=== PATIENT | female | born 1980 | race Two or more races ===

== ENCOUNTER → 2024-09-13 | Outpatient (CLI) | payer MEDICAID, SELFPAY ==
--- NOTE | 2024-09-13 09:56 | XR_ITS ---
Examination: PA lateral chest 2 views TECHNIQUE: Upright PA lateral chest 2 views Exam date and time: September 13, 2024 1026 hours INDICATIONS: Preop, bariatric surgery. FINDINGS: Normal heart size Lungs are clear. The osseous structures are intact IMPRESSION: No active disease
== END | disposition home or self-care (01) ==
LOC: CDIM 09:51
DX: Z01.812 Encounter for preprocedural laboratory examination (principal)
CPT/HCPCS: 71046